=== PATIENT | male | born 1950 | race Caucasian/White ===

== ENCOUNTER 2016-10-02 21:31 | Emergency (ER) | payer OTHER ==
[~2016-10-02] VITALS: Ht 180.3 cm; Wt 81.6 kg
[2016-10-02 21:31] VITALS: BP_SYST 143
[2016-10-02 22:09] LABS: BASOPHILS # (AUTO) 0.1 K/uL (0.0-0.2); BASOPHILS % (AUTO) 0.8 % (0.0-2.0); EOSINOPHILS # (AUTO) 0.2 K/uL (0.0-0.4); EOSINOPHILS % (AUTO) 2.5 % (0.0-4.0); HEMATOCRIT 28.2 % (36-54); HEMOGLOBIN 9.1 g/dL (14.0-18.0); LYMPHOCYTES # (AUTO) 1.2 K/uL (1.0-5.5); LYMPHOCYTES % (AUTO) 15.8 % (20.5-51.5); MEAN CORPUSCULAR HEMOGLOBIN 26 pg (27-31); MEAN CORPUSCULAR HGB CONC 32 % (32-36); MEAN CORPUSCULAR VOLUME 80 fL (79.0-98.0); MONOCYTES # (AUTO) 0.6 K/uL (0.0-1.0); MONOCYTES % (AUTO) 7.3 % (1.7-9.3); NEUTROPHILS # (AUTO) 5.8 K/uL (1.8-7.7); NEUTROPHILS % (AUTO) 73.6 % (40.0-70.0); PLATELET COUNT (AUTO) 421 K/uL (130-430); RED BLOOD CELL COUNT(AUTO) 3.52 MIL/uL (4.2-6.2); RED CELL DISTRIBUTION WIDTH 18.1 % (9.0-15.0); WHITE BLOOD COUNT (AUTO) 7.9 K/uL (4.8-10.8)
[2016-10-02 22:23] LABS: CREATININE 1.42 mg/dL (0.55-1.30); POTASSIUM 4.2 mmol/L (3.5-5.1)
[2016-10-02 22:28] LABS: ALBUMIN 3.4 g/dL (3.4-4.8); TOTAL BILIRUBIN 0.2 mg/dL (0.0-1.0); TOTAL PROTEIN, SERUM 7.7 g/dL (6.4-8.3)
[2016-10-03 00:40] LABS: BILIRUBIN,URINE NEGATIVE (NEGATIVE); BLOOD, URINE NEGATIVE (NEGATIVE); CLARITY/URINE CLEAR (CLEAR); COLOR,URINE YELLOW (YELLOW); GLUCOSE,URINE NEGATIVE (NEGATIVE); KETONES,URINE NEGATIVE (NEGATIVE); LEUKOCYTE ESTERASE ,URINE NEGATIVE (NEGATIVE); NITRITE, URINE NEGATIVE (NEGATIVE); PH,URINE 5.5 (5.0-8.0); PROTEIN URINE NEGATIVE (NEGATIVE); UROBILINOGEN,URINE 0.2 (0.2-1.0)
[2016-10-03] MEDS ORDERED: PARO40TA80 PO (01:03)
[2016-10-03] MEDS ORDERED: FOLI-43 PO (01:03)
[2016-10-03] MEDS ORDERED: ASCO500T20 PO (01:03)
[2016-10-03] MEDS ORDERED: SULF1TAB48 PO (01:03)
[2016-10-03] MEDS ORDERED: TAMS0.4C96 PO (01:03)
[2016-10-03] MEDS ORDERED: FERR-57 PO (01:03)
[2016-10-03] MEDS ORDERED: ALLO100T PO (01:03)
[2016-10-03] MEDS ORDERED: SIME80TA PO (01:03)
[2016-10-03] MEDS ORDERED: THIA100T13 PO (01:03)
[2016-10-03] MEDS ORDERED: SENN-153 PO (01:03)
[2016-10-03] MEDS ORDERED: DOCU250C PO (01:03)
[2016-10-03] MEDS ORDERED: BUDE0.5A INH (01:03)
[2016-10-03 01:08] LABS: BARBITURATE, URINE NEGATIVE (NEG <=200); BENZODIAZEPINE, URINE POSITIVE (NEG <=150); CANNABINOID, URINE NEGATIVE (NEG <=50); COCAINE, URINE NEGATIVE (NEG <=150); METHAMPHETAMINES SCREEN,URINE NEGATIVE (NEG <=500); OPIATE, URINE POSITIVE (NEG <=100); PHENCYCLIDINE SCREEN,URINE NEGATIVE (NEG <=25); UR TRICYCLIC ANTIDEPRESSANTS NEGATIVE (NEG <=300); URINE AMPHETAMINE NEGATIVE (NEG <=500); URINE METHADONE NEGATIVE (NEG <=200); URINE OXYCODONE SCREEN NEGATIVE (NEG <=100); URINE PROPOXYPHENE SCREEN NEGATIVE (NEG <=300)
[2016-10-03 02:06] VITALS: BP_SYST 147
== END 2016-10-03 02:06 | disposition home or self-care (01) ==
LOC: SED 21:31
DX: R41.82 Altered mental status, unspecified (principal); M25.562 Pain in left knee; F03.90 Unspecified dementia, unspecified severity, without behavioral disturbance, psychotic disturbance, mood disturbance, and anxiety; Z79.899 Other long term (current) drug therapy; Z88.1 Allergy status to other antibiotic agents; Z88.8 Allergy status to other drugs, medicaments and biological substances
CPT/HCPCS: 36415; 70450; 73564; 80053; 80307; 81003; 85025; 93005; 99285; G0482

== ENCOUNTER 2016-10-06 00:22 | Inpatient (IN) | payer OTHER ==
[2016-10-06] VITALS (10 sets, daily range): BP systolic 118–150; BP diastolic 65–83; PULSE 64–85; RESP 16–18; TEMP 97.6–100.4; O2SAT 95–100
[~2016-10-06] VITALS: Ht 177.8 cm; Wt 76.3 kg
[~2016-10-06 00:22] MED LIST: ALLO100T PO; ASCO500T20 PO; BUDE0.5A INH; DOCU250C PO; FERR-57 PO; FOLI-43 PO; PARO40TA80 PO; SENN-153 PO; SIME80TA PO; SULF1TAB48 PO; TAMS0.4C96 PO; THIA100T13 PO
--- NOTE | 2016-10-06 00:27 | NUR ---
Placed in room 08 . Placed on cardiac monitor technician, blood pressure machine and pulse oximeter. To gown for exam. Side rails up. Report given to IGNACIO Ramon.
--- NOTE | 2016-10-06 00:30 | NUR ---
Patient brought to ER by [facility] from [facility] for post fall evaluation. Per EMT patient was found by staff on the floor. Denies pain. Small <1cm abrasion to head non bleeding, dry. Chana-umbilical SQ bruising, patient states "its from the insulin shots i get" no signs of infection. Dry flaky skin appropriate to age and ethnicity. Alert to person & purpose, unlabored breathing, no obvious signs of trauma, no signs of acute distress. Addendum: 10/06/16 at 0221 by [facility] *lovenox shots* not insulin
--- NOTE | 2016-10-06 00:32 | NUR ---
ER MD Carr at bedside for evaluation
--- NOTE | 2016-10-06 00:50 | NUR ---
Patient off the unit for CT scan via gurney
--- NOTE | 2016-10-06 01:16 | NUR ---
Patient back from CT scan via [facility]
--- NOTE | 2016-10-06 01:30 | NUR ---
#14 FR In and Out catheter with use of sterile technique. Immediate return of 30 ml yellow urine noted. Urine sample collected and sent to lab. Pt tolerated procedure well. Patient unable to toilet self.
--- NOTE | 2016-10-06 01:39 | NUR ---
# 18 gauge angiocath placed to R forearm. Use of asceptic technique. Opsite placed over site. Blood return noted. Blood for lab drawn from site. Flushed with 10 cc of normal saline. No evidence of infiltration noted. Patient tolerated well.
[2016-10-06 01:43] LABS: BILIRUBIN,URINE NEGATIVE (NEGATIVE); BLOOD, URINE NEGATIVE (NEGATIVE); CLARITY/URINE CLEAR (CLEAR); COLOR,URINE YELLOW (YELLOW); GLUCOSE,URINE NEGATIVE (NEGATIVE); KETONES,URINE TRACE (NEGATIVE); LEUKOCYTE ESTERASE ,URINE NEGATIVE (NEGATIVE); NITRITE, URINE NEGATIVE (NEGATIVE); PH,URINE 5.5 (5.0-8.0); PROTEIN URINE NEGATIVE (NEGATIVE); UROBILINOGEN,URINE 0.2 (0.2-1.0)
[2016-10-06] MEDS ORDERED: HYDR-1189 PO (01:44)
[2016-10-06] MEDS ORDERED: MAGN400O4 PO (01:44)
[2016-10-06] MEDS ORDERED: ACET-73 PO ×2 (01:44)
[2016-10-06] MEDS ORDERED: MAGN100T6 PO (01:44)
[2016-10-06] MEDS ORDERED: CETI5TAB31 PO (01:44)
[2016-10-06] MEDS ORDERED: MULT-1189 PO (01:44)
[2016-10-06] MEDS ORDERED: ACET325T53 PO (01:44)
[2016-10-06] MEDS ORDERED: LORA10TA7 PO (01:44)
--- NOTE | 2016-10-06 01:44 | NUR ---
Medication reconciliation completed with information provided by patient's facility. Any prior medication reconciliation on file was reviewed and corrected.
[2016-10-06 01:54] LABS: BASOPHILS # (AUTO) 0.1 K/uL (0.0-0.2); BASOPHILS % (AUTO) 0.8 % (0.0-2.0); EOSINOPHILS # (AUTO) 0.2 K/uL (0.0-0.4); EOSINOPHILS % (AUTO) 2.5 % (0.0-4.0); HEMATOCRIT 26.5 % (36-54); HEMOGLOBIN 8.4 g/dL (14.0-18.0); LYMPHOCYTES # (AUTO) 1.7 K/uL (1.0-5.5); LYMPHOCYTES % (AUTO) 23.1 % (20.5-51.5); MEAN CORPUSCULAR HEMOGLOBIN 25 pg (27-31); MEAN CORPUSCULAR HGB CONC 32 % (32-36); MEAN CORPUSCULAR VOLUME 79 fL (79.0-98.0); MONOCYTES # (AUTO) 0.8 K/uL (0.0-1.0); MONOCYTES % (AUTO) 10.5 % (1.7-9.3); NEUTROPHILS # (AUTO) 4.4 K/uL (1.8-7.7); NEUTROPHILS % (AUTO) 63.1 % (40.0-70.0); PLATELET COUNT (AUTO) 360 K/uL (130-430); RED BLOOD CELL COUNT(AUTO) 3.34 MIL/uL (4.2-6.2); RED CELL DISTRIBUTION WIDTH 18.3 % (9.0-15.0); WHITE BLOOD COUNT (AUTO) 7.2 K/uL (4.8-10.8)
[2016-10-06 01:59] LABS: BARBITURATE, URINE NEGATIVE (NEG <=200); BENZODIAZEPINE, URINE NEGATIVE (NEG <=150); CANNABINOID, URINE NEGATIVE (NEG <=50); COCAINE, URINE NEGATIVE (NEG <=150); METHAMPHETAMINES SCREEN,URINE NEGATIVE (NEG <=500); OPIATE, URINE NEGATIVE (NEG <=100); PHENCYCLIDINE SCREEN,URINE NEGATIVE (NEG <=25); UR TRICYCLIC ANTIDEPRESSANTS NEGATIVE (NEG <=300); URINE AMPHETAMINE NEGATIVE (NEG <=500); URINE METHADONE NEGATIVE (NEG <=200); URINE OXYCODONE SCREEN NEGATIVE (NEG <=100); URINE PROPOXYPHENE SCREEN NEGATIVE (NEG <=300)
[2016-10-06 02:04] LABS: CREATININE 1.41 mg/dL (0.55-1.30); POTASSIUM 4.3 mmol/L (3.5-5.1)
[2016-10-06 02:09] LABS: ALBUMIN 3.5 g/dL (3.4-4.8); TOTAL BILIRUBIN 0.4 mg/dL (0.0-1.0); TOTAL PROTEIN, SERUM 7.4 g/dL (6.4-8.3)
--- NOTE | 2016-10-06 02:10 | NUR ---
Patient does not meet SEPSIS protocol.
--- NOTE | 2016-10-06 02:25 | NUR ---
Patient will be admitted to care of DR APONTE. Admitted to TELE IN unit. Will go to room 135. Belongings list completed. Summary report printed. Report will be given at bedside.
[2016-10-06] MEDS ORDERED: SIMETHICONE 80 MG TAB.CHEW PO SCH (02:30)
[2016-10-06] MEDS ORDERED: HYDROcodone/ACETAMIN 5-325 MG TAB (NORCO/ VICODIN) PO PRN (02:30)
[2016-10-06] MEDS ORDERED: MILK OF MAGNESIA 30 ML UDC PO PRN (02:30)
[2016-10-06] MEDS ORDERED: CETIRIZINE HCL 5 MG PO SCH (02:30)
[2016-10-06] MEDS ORDERED: MAGNESIUM CITRATE 300 MG PO SCH (02:30)
[2016-10-06] MEDS ORDERED: ACETAMINOPHEN 500 MG TABLET PO SCH ×2 (02:30)
[2016-10-06] MEDS ORDERED: ACETAMINOPHEN 325 MG TABLET PO PRN ×2 (02:30→09:30)
--- NOTE | 2016-10-06 02:32 | NUR ---
Transfer to [facility] via ACLS protocol. Licensed nurse present. IV present no signs or symptoms of infiltration.
--- NOTE | 2016-10-06 02:42 | NUR ---
Admission Note Received patient from ER with diagnosis of SYNCOPE. Initial Plan of Care discussed-patient verbalized understanding. Family at bedside. Oriented to room, call light, pain management and safety.
[2016-10-06] MEDS: NACL 0.9% 1,000 ML IV SCH ×2 (03:20→16:55)
--- NOTE | 2016-10-06 04:50 | NUR ---
NOTES PATIENT IS CONFUSED. KEEPS PULLING OFF EKG PADS. REMINDED PATIENT NOT TO GET OUT OF BED. SHOWED HIM NURSE CALL BUTTON, INFORMED HIM TO CALL NURSE FOR ALL NEEDS. PATIENT ORIENTED TO NAME ONLY @ THIS TIME.
--- NOTE | 2016-10-06 06:59 | NUR ---
CLOSING NOTES PATIENT IS CONFUSED.NEEDS TO BE REMINDED TO STAY IN BED. PERIODS OF RESTLESSNESS. NONCOMPLIANT. PULLS OFF EKG PADS. PULLING ON IV TUBING. HAS IV 0.9NS INFUSING @ 70ML/HR VIA RT.HAND 20G IV SITE IS CLEAR. HAS NOT VOIDED YET. ABDOMEN IS SOFT. OFFERED URINAL. INFORMED PATIENT TO STAY IN BED AND CALL NURSE FOR ALL NEEDS. CALL LIGHT WITHIN EASY ACCESS.
[2016-10-06] MEDS: BUDESONIDE 0.5 MG/2 ML AMPUL.NEB INH SCH ×2 (07:00→20:07)
--- NOTE | 2016-10-06 08:04 | NUR ---
OPENING NOTE: RECEIVED REPORT FROM Nathanael KAUR. PT AAOX2. REORIENTED PT TO PLACE AND DATE. PT RESTING COMFORTABLY IN BED WITH HOB ELEVATED. NO ACUTE SIGNS OF DISTRESS, NO SOB. RESPIRATIONS EVEN AND UNLABORED. PT ON ROOM AIR SATURATING AT 98% O2. SKIN WARM DRY AND PINK. IV INTACT AND IVF INFUSING WELL. PT REFUSES TELE BOX TO BE IN PLACE. PT IS NON COMPLIANT AND COMBATIVE. PT REFUSED BLOOD PRESSURE TO BE TAKEN, COMBATIVE WHEN ATTEMPTED. SAFETY PRECAUTIONS IN PLACE WITH BED AT LOWEST POSITION, CALL LIGHT WITHIN REACH, BED ALARM ON, AND SIDE RAILS X3. RE-ENFORCED EDUCATION IN REGARDS TO CALLING PRIOR TO GETTING UP. PT HAS URINAL AT BEDSIDE, RE-ENFORCED EDUCATION IN REGARDS TO USING URINAL WHEN NEEDING TO VOID. CONTINUE TO MONITOR.
[2016-10-06] MEDS: SENNOSIDES 8.6 MG TABLET PO SCH ×3 (08:47→22:28)
[2016-10-06] MEDS: PARoxetine HCL 20 MG TABLET PO SCH (08:47)
[2016-10-06] MEDS: ALLOPURINOL 100 MG TABLET (ZYLOPRIM) PO SCH (08:48)
[2016-10-06] MEDS: TAMSULOSIN HCL 0.4 MG CAP PO SCH (08:48)
[2016-10-06] MEDS ORDERED: THIAMINE HCL 100 MG TABLET PO SCH (09:00)
[2016-10-06] MEDS ORDERED: MULTIVITS,CA,MINERALS/IRON/FA 1 TABLET PO SCH (09:00)
[2016-10-06] MEDS ORDERED: SULFAMETHOXAZOLE/TRIMETHOPR DS 1 TABLET PO SCH (09:00)
[2016-10-06] MEDS ORDERED: LORATADINE 10 MG TABLET PO SCH (09:00)
[2016-10-06] MEDS ORDERED: DOCUSATE SODIUM 250 MG CAPSULE PO SCH (09:00)
[2016-10-06] MEDS ORDERED: FOLIC ACID 1 MG TABLET PO SCH (09:00)
[2016-10-06] MEDS ORDERED: FERROUS SULFATE 325 MG TABLET.DR PO SCH (09:00)
[2016-10-06] MEDS ORDERED: ASCORBIC ACID 500 MG TABLET PO SCH (09:00)
--- NOTE | 2016-10-06 09:23 | NUR ---
Nutrition Update Kam Scale 15 noted. Pt admitted for: Syncope Diet: regular diet. BMI: 24.1 kg/m2 RD to follow per nutrition care standards.
[2016-10-06] MEDS ORDERED: DOCUSATE SODIUM 100 MG CAPSULE PO PRN (09:30)
[2016-10-06] MEDS ORDERED: POTASSIUM CHLORIDE 10 MEQ TAB.PRT.SR PO PRN (09:30)
[2016-10-06] MEDS ORDERED: ONDANSETRON HCL 4 MG/2 ML VIAL IVP PRN (09:30)
[2016-10-06] MEDS ORDERED: MAGNESIUM SULFATE 50 ML IV PRN (09:30)
[2016-10-06] MEDS ORDERED: ZOLPIDEM TARTRATE 5 MG TABLET PO PRN (09:30)
--- NOTE | 2016-10-06 10:06 | NUR ---
REASON FOR CONSULTATION:POSS VIDA DO -WAS CONSULT CALLED?Y PERSON WHO WAS NOTIFIED:DEEPIKA CONSULTING PHYSICIAN:DR. VALENTIN -DR TYLER COVERING TODAY [employer] CONSULTANT SPECIALTY:NEURO [employer] CONSULTANT PHONE NUMBER:[phone]
--- NOTE | 2016-10-06 10:33 | NUR ---
DR. TYLER AT BEDSIDE: Dr. TYLER AT BEDSIDE. DR. TYLER ASSESSED AT BEDSIDE. NEW ORDERS NOTED FOR MRI AND EEG.
--- NOTE | 2016-10-06 10:41 | NUR ---
ROUNDING: PT RESTING IN BED WITH HOB ELEVATED. AAOX2. REORIENTED PT. NO ACUTE SIGNS OF RESPIRATORY DISTRESS, NO SOB. RESPIRATIONS EVEN AND UNLABORED. SKIN WARM DRY AND PINK. IV INTACT WITH NO SIGNS OF REDNESS/SWELLING. IVF INFUSING WELL. SEIZURE PRECAUTIONS IMPLEMENTED WITH PADDED SIDE RAILS. COOLING MEASURES IMPLEMENTED WITH NO BLANKET AND ICE PACK. SAFETY MEASURES IMPLEMENTED
--- NOTE | 2016-10-06 12:05 | NUR ---
ROUNDING: RADIOLOGY AT BEDSIDE. PT RESTING WITH HOB ELEVATED, COMFORTABLY. NO ACUTE RESPIRATORY DISTRESS, NO SOB. SKIN COLOR PINK. IV INTACT, IVF INFUSING WELL. SEIZURE PRECAUTIONS. SAFETY PRECAUTIONS. CONTINUE TO MONITOR.
[2016-10-06] MEDS: LEVOFLOXACIN 500 MG/D5W 100 ML IV SCH (12:45)
--- NOTE | 2016-10-06 15:47 | NUR ---
PT REFUSING TELE BOX: PT IS REFUSING TELE BOX, PT IS COMBATIVE. PT ATTEMPTS TO HIT WHEN REPLACING TELE BOX. DR. RICHEY IS AWARE THAT PT REFUSES TELE BOX AT TIMES.
[2016-10-06] MEDS: LORazepam 2 MG/ML VIAL IVP PRN (16:36)
--- NOTE | 2016-10-06 16:36 | NUR ---
patient noted to be agitated, pulling lines, stripping clothing off, arguing with staff and threatening violence. 2mg ivp ativan given and patient placed back in to bed with aid of security
--- NOTE | 2016-10-06 16:58 | NUR ---
Seizure: Tremors noted to BUE and BLE. Pt is non-verbal and he is staring blankly ahead followed by eyes rolling back into head. Pt unable to follow commands. Seizure lasts 10 seconds. After seizure patient returns to baseline, he remains combative, nonsensical, and awake. Pt noted trying to reach for objects in the air. O2 sat 100% on room air. Security remains at bedside. Continue to monitor.
--- NOTE | 2016-10-06 17:13 | NUR ---
Dr. De La O Paged: Dr. De La O paged to make aware that pt is too combative for MRI and EEG at this time. Awaiting page back at this time.
--- NOTE | 2016-10-06 17:23 | NUR ---
Dr. De La O Page Back/ Page Dr. Diaz: Dr. De La O page back, he is aware that pt has been having seizures. He is also aware that MRI, and EEG cannot be done at this time due to patient being uncooperative. New orders noted for seizure medications. Dr. De La O states "ok try EEG tomorrow and we can reschedule MRI for another time". Pharmacy called, aware of new med orders. Dr. Diaz paged for orders for restraints and medication.
[2016-10-06] MEDS ORDERED: VALPROATE SODIUM 1,000 MG in NS 100 ML IV ONE (17:30)
--- NOTE | 2016-10-06 17:57 | NUR ---
NOTIFIED REGARDS TO RESTRAINTS: SPOKE TO , FRANCIA. SHE IS AWARE OF SOFT RESTRAINTS INITIATION. CYNTHIAI STATED "HE HAS HAD RESTRAINTS BEFORE. DO WHATEVER YOU CAN TO KEEP HIM AND THE STAFF SAFE". UPDATED ON PLAN OF CARE. NO FURTHER QUESTIONS.
--- NOTE | 2016-10-06 18:30 | NUR ---
Consultation Paged Reason for consultation: Agitation, Aggression and Confusion Was consult called: Yes Person who was notified; Kymberly Consulting Physician: Dr Munoz; Dr Jensen is on-call for Dr Munoz Grain Elevator Operator Specialty: Psych Grain Elevator Operator ; notified exchange that the number provided for Dr Munoz's exchange does not work Ordered By: Dr Diaz
--- NOTE | 2016-10-06 19:08 | NUR ---
CLOSING NOTE: PT IN BED WITH HOB ELEVATED. NO ACUTE SIGNS OF RESPIRATORY DISTRESS, NO SOB. SKIN WARM DRY AND COLOR NORMAL FOR ETHNICITY. IV INTACT AND IVF INFUSING WELL. SOFT RESTRAINTS IN PLACE WITH 2 FINGER WIDTH SPACE, PULSE PRESENT BILATERAL, BILATERAL UPPER EXTREMITIES COLOR NORMAL FOR ETHNICITY. PT DENIES PAIN AT THIS TIME. PT DENIES DISCOMFORT. SEIZURE PRECAUTIONS IMPLEMENTED WITH PADDED RAILS. SAFETY WITH BED LOWEST POSITION, CALL LIGHT WITHIN REACH, BED ALARM ON, AND SIDE RAILS X3. WILL ENDORSE PLAN OF CARE TO IGNACIO KAUR.
--- NOTE | 2016-10-06 19:50 | NUR ---
initial note pt. received in bed, no s/s of sob or distress. no facial grimacing for pain. vss. pt. does not want to open eyes or respond when being spoken to. bilateral soft wrist restraints noted. becomes agitated when restraints are removed. good circulation and pulses present bilaterally to both wrists. iv access to left forearm, no infiltration noted. iv fluids infusing well as ordered. unable to discuss plan of care with the pt. will do frequent rounding. pt. is close to the nurses station for close observation. pillows placed under the heels and on the side to offload pressure areas. side rails are padded for seizure precautions. safety and fall precautions in place. bed alarm is on.
--- NOTE | 2016-10-06 22:15 | NUR ---
rounds pt. in bed. resting with eyes closed. no signs of sob noted. removed restraints so pt could move hands freely, however the pt. became very agitated. good circulation and pulses are present to bilateral wrists/ upper extremities. attempted to give the pt. water, but he kept his mouth closed very tight. also refused to take his 2100 oral medication. pt kept eyes closed and started shaking hands when asked him if he would be able to take the medication. restrains are back in place. pt. covered with a warm blanket for comfort. will cont. to closely monitor. safety, fall and seizure precautions remain in place. call light in hand. bed alarm is on.
[2016-10-06] MEDS: HEPARIN SODIUM,PORCINE 5000 UNITS/ML VIAL SUBCUT SCH (22:30)
[2016-10-07] VITALS (7 sets, daily range): BP systolic 98–144; BP diastolic 60–78; PULSE 72–82; RESP 16–20; TEMP 98.5–99.6; O2SAT 93–100
--- NOTE | 2016-10-07 00:02 | NUR ---
rounds pt. resting in bed with eyes closed. chest rise and fall noted. no s/s of sob or distress noted. no facial grimacing for pain. good circulation present to bilateral upper extremities. iv fluids cont. to infuse well. will cont. to monitor the pt. closely for any changes. safety, fall and seizure precautions in place. call light in reach, bed alarm on.
--- NOTE | 2016-10-07 02:15 | NUR ---
rounds pt. provided with bed bath with assistance from commercial teller. restraints removed during this time. pt. being combative and uncooperative. attempting to hit. bilateral upper extremeties are warm to touch with good circulation and pulses present bilaterally. no signs of injury as a result of having restraints in place. pt. was offered fluids during this time to which he refused. pt. was left in a comfortable position, supported well with pillows to offload pressure areas. iv fluids cont. to infuse well. seizure precautions remain in place. call light is in reach and the bed alarm is on. bilateral soft wrist restraints reapplied prior to leaving the room. will cont. to closely monitor.
--- NOTE | 2016-10-07 04:15 | NUR ---
ROUNDS PT. SLEEPING AT THIS TIME. NO S/S OF SOB OR DISTRESS. NO FACIAL GRIMACING FOR PAIN. IV FLUIDS CONT. TO INFUSE WELL. WILL CONT. TO MONITOR FOR CHANGES. SAFETY, FALL AND SEIZURE PRECAUTIONS IN PLACE CALL LIGHT IN REACH, BED ALARM ON.
--- NOTE | 2016-10-07 06:37 | NUR ---
CLOSING NOTE PT. SLEEPING AT THIS TIME. NO S/S OF SOB OR DISTRESS. NO FACIAL GRIMACING FOR PAIN. IV FLUIDS CONT. TO INFUSE WELL. SAFETY AND FALL PRECAUTIONS WERE MAINTAINED. NO SEIZURE ACTIVITY NOTED THIS SHIFT WILL ENDORSE CARE TO AM NURSE. CALL LIGHT IN REACH. BED ALARM ON.
--- NOTE | 2016-10-07 07:41 | NUR ---
OPENING NOTE: PT RESTING IN BED WITH EYES CLOSED. NO ACUTE SIGNS OF RESPIRATORY DISTRESS, NO SOB. SKIN COLOR NORMAL FOR ETHNICITY. IV INTACT. IVF INFUSING WELL. EEG IN PROGRESS AT BEDSIDE. SEIZURE PRECAUTION IN PLACE. FALL PRECAUTION IN PLACE. CONTINUE TO MONITOR.
[2016-10-07 07:45] LABS: BASOPHILS % (AUTO) 0.9 % (0.0-2.0); EOSINOPHILS # (AUTO) 0.2 K/uL (0.0-0.4); HEMATOCRIT 24.6 % (36-54); HEMOGLOBIN 7.6 g/dL (14.0-18.0); LYMPHOCYTES # (AUTO) 1.1 K/uL (1.0-5.5); LYMPHOCYTES % (AUTO) 21.6 % (20.5-51.5); MEAN CORPUSCULAR HEMOGLOBIN 25 pg (27-31); MEAN CORPUSCULAR HGB CONC 31 % (32-36); MEAN CORPUSCULAR VOLUME 79 fL (79.0-98.0); MONOCYTES # (AUTO) 0.6 K/uL (0.0-1.0); MONOCYTES % (AUTO) 11.4 % (1.7-9.3); NEUTROPHILS # (AUTO) 3.4 K/uL (1.8-7.7); NEUTROPHILS % (AUTO) 63.1 % (40.0-70.0); PLATELET COUNT (AUTO) 322 K/uL (130-430); RED CELL DISTRIBUTION WIDTH 18.4 % (9.0-15.0); WHITE BLOOD COUNT (AUTO) 5.3 K/uL (4.8-10.8)
[2016-10-07 08:00] LABS: CALCIUM 8.6 mg/dL (8.4-11.0); CREATININE 1.14 mg/dL (0.55-1.30); POTASSIUM 3.9 mmol/L (3.5-5.1)
[2016-10-07 08:29] LABS: C-REACTIVE PROTEIN QUANT 4.5 mg/dL (0-0.5); PHOSPHORUS 3.5 mg/dL (2.7-4.5); THYROID STIMULATING HORMONE 1.83 uIu/mL (0.34-4.82)
[2016-10-07] MEDS ORDERED: VALPROIC ACID 250 MG CAPSULE (DEPAKENE) PO SCH (09:00)
--- NOTE | 2016-10-07 09:11 | NUR ---
CALLED ID CONSULT TO DR FANG, RE: INT. FEVER. SPOKE TO JOLIE
[2016-10-07] MEDS: LORazepam 2 MG/ML VIAL IVP PRN (09:26)
[2016-10-07] MEDS: SENNOSIDES 8.6 MG TABLET PO SCH ×3 (09:32→21:25)
[2016-10-07] MEDS: PARoxetine HCL 20 MG TABLET PO SCH (09:32)
[2016-10-07] MEDS: NACL 0.9% 1,000 ML IV SCH (09:32)
[2016-10-07] MEDS: ALLOPURINOL 100 MG TABLET (ZYLOPRIM) PO SCH (09:32)
[2016-10-07] MEDS: HEPARIN SODIUM,PORCINE 5000 UNITS/ML VIAL SUBCUT SCH ×2 (09:34→21:24)
[2016-10-07] MEDS: TAMSULOSIN HCL 0.4 MG CAP PO SCH (09:35)
--- NOTE | 2016-10-07 09:47 | NUR ---
Pt Agitation: Pt is agitated, pulls at restraints and attempts to get out of bed. He is wiggling out of his restraints and attempting to hit. Unable to redirect patient. He remains confused, nonsensical, and combative. Ativan given for agitation. US of carotid in progress at this time. Call light in reach. Continue to monitor.
--- NOTE | 2016-10-07 10:35 | NUR ---
DR. LIPSCOMB HERE: DR. LIPSCOMB AT BEDSIDE.
[2016-10-07] MEDS: BUDESONIDE 0.5 MG/2 ML AMPUL.NEB INH SCH ×2 (11:20→19:49)
[2016-10-07] MEDS: LEVOFLOXACIN 500 MG/D5W 100 ML IV SCH (11:23)
--- NOTE | 2016-10-07 12:00 | NUR ---
ROUNDING: PT RESTING IN BED WITH EYES CLOSED, HOB ELEVATED. NO ACUTE SIGNS OF RESPIRATORY DISTRESS, NO SOB. SKIN WARM DRY AND COLOR NORMAL FOR ETHNICITY. IV INTACT, NO SIGNS OF REDNESS/SWELLING. IVF INFUSING WELL. SOFT RESTRAINTS INTACT, TWO FINGER WIDTH, PULSES PRESENT BILATERAL UPPER EXTREMITIES. CONTINUE TO MONITOR.
--- NOTE | 2016-10-07 12:24 | NUR ---
ATTENDING DR FADI HALL CALLED RE: CRITICAL LABS. LEFT A MESSAGE
--- NOTE | 2016-10-07 14:00 | NUR ---
ROUNDING: PT RESTING WITH EYES CLOSED, HOB ELEVATED. NO ACUTE RESPIRATORY DISTRESS. SKIN COLOR NORMAL FOR ETHNICITY. IV INTACT. SOFT WRIST RESTRAINTS INTACT. SAFETY PRECAUTION IN PLACE. SEIZURE PRECAUTION IN PLACE. CONTINUE TO MONITOR.
[2016-10-07] MEDS: VALPROATE SODIUM IV SCH ×2 (14:27→21:23)
[2016-10-07] MEDS: D5W IV SCH ×2 (14:27→21:23)
--- NOTE | 2016-10-07 16:04 | NUR ---
DR. BIRD HERE: INFECTIOUS DISEASE MD, DR. BIRD HERE TO SEE PATIENT. DR. BIRD AWARE OF PT HISTORY AND WOUNDS. SAID "I WILL GO SEE THE PATIENT AND PUT NEW ORDERS".
[2016-10-07] MEDS: CLINDAMYCIN 600 MG in D5W 50 ML IV SCH (17:37)
--- NOTE | 2016-10-07 17:41 | NUR ---
ROUNDING: PT RESTING COMFORTABLY IN BED, HOB ELEVATED. NO ACUTE RESPIRATORY DISTRESS NOTED, NO SOB. SKIN WARM DRY AND COLOR NORMAL FOR ETHNICITY. IV INTACT. IVF/MEDS INFUSING WELL. RESTRAINTS IN PLACE WITH 2 FINGER WIDTH SPACE, BILATERAL UPPER EXTREMITY PULSES PRESENT. SEIZURE PRECAUTIONS WITH PADDED RAILS. BED AT LOWEST POSITION. SIDE RAILS X3.
--- NOTE | 2016-10-07 19:10 | NUR ---
CLOSING NOTE: PT RESTING WITH HOB ELEVATED. NO ACUTE RESPIRATORY DISTRESS, NO SOB. RESPIRATIONS EVEN AND UNLABORED. SKIN WARM DRY AND PINK. NO SEIZURE ACTIVITY NOTED THIS SHIFT. SEIZURE PADS IN PLACE. TREMORS PERSIST TO BILATERAL UPPER EXTREMITIES. DRESSING INTACT TO LEG FOOT. IV INTACT AND IVF INFUSING WELL. PT ASSISTED FEEDING WITH LUNCH AND DINNER AND PT REFUSED. SOFT BILATERAL WRIST RESTRAINTS IN PLACE WITH TWO FINGER WIDTH, PULSE PRESENT AND CAP REFILLS. SAFETY MEASURES IN PLACE. WILL ENDORSE PLAN OF CARE TO IGNACIO KAUR.
--- NOTE | 2016-10-07 19:59 | NUR ---
initial note pt. received in bed, awake, verbal, but not able to make much sense of what the pt. is saying. no s/s of sob or distress. no facial grimacing for pain. vss. bilateral soft wrist restraints noted. upper extremities warm to touch, good circulation and pulses present bilaterally . iv access to left forearm, no infiltration noted. iv fluids infusing well as ordered. wound to left foot is covered with a clean and dry dressing. no drainage noted. unable to discuss plan of care with the pt. will do frequent rounding. pt. is close to the nurses station for close observation. pillows placed under the heels and on the side to offload pressure areas. side rails are padded for seizure precautions. safety and fall precautions in place. bed alarm is on.
[2016-10-07] MEDS ORDERED: VALPROATE SODIUM 100 MG/ML VIAL (DEPACON) IV ONE (21:16)
--- NOTE | 2016-10-07 21:33 | NUR ---
PO MEDS ATTEMPTED TO ADMINISTER 2100 PO MEDICATION. PT. NODDED HEAD THAT HE COULD SWALLOW HOWEVER WHEN ASSISTED PT IN PUTTING PILL IN HIS MOUTH HE CLOSED EYES AND FELL ASLEEP HOLDING PILL IN HIS MOUTH. ATTEMPTED TO WAKE PT. BUT VERY LETHARGIC. WAS ABLE TO GET THE PILL OUT OF THE PT. MOUTH HE WAS JUST HOLDING IT BETWEEN HIS LIP AND TEETH. FOR SAFETY REASONS THE PILL WILL BE HELD. ATTEMPTED TO GIVE PT. WATER WELL, BUT IT APPEARS HE IS HAVING DIFFICULTY USING THE STRAW WELL. WILL ENDORSE. CHARGE NURSE MADE AWARE OF THE SITUATION.
--- NOTE | 2016-10-07 22:15 | NUR ---
ROUNDS PT. RESTING IN BED WITH EYES CLOSED. CHEST RISE AND FALL NOTED. RESTRAINTS REMOVED. GOOD CIRCULATION NOTED TO BILATERAL UPPER EXTREMITIES, WARM TO TOUCH WITH PULSES PRESENT. NO S/S OF SOB OR DISTRESS NOTED. NO FACIAL GRIMACING INDICATING PAIN. WILL CONT. TO MONITOR FOR CHANGES. SAFETY, FALL AND SEIZURE PRECAUTIONS IN PLACE. CALL LIGHT IN REACH.
[2016-10-08] VITALS (7 sets, daily range): BP systolic 120–140; BP diastolic 60–88; PULSE 68–80; RESP 16–18; TEMP 97.6–98.8; O2SAT 93–100
--- NOTE | 2016-10-08 | NUR ---
rounds pt. provided with new linen and hygiene care. pt. incontinent of urine and unable to toilet self. repositioned in bed and well supported with pillows to offload pressure areas. restraints removed. pt restless during this time. bilateral upper extremities are warm to touch, good circulation present. dressing to left heel remains CDI with no drainage noted. iv fluids continue to infuse well as ordered. restraints reapplied prior to leaving room. safety, fall and seizure precautions in place. call light in reach.
[2016-10-08] MEDS: CLINDAMYCIN 600 MG in D5W 50 ML IV SCH ×4 (00:30→17:02)
[2016-10-08] MEDS: NACL 0.9% 1,000 ML IV SCH ×3 (03:58→21:47)
--- NOTE | 2016-10-08 04:39 | NUR ---
ROUNDS PT. RESTING IN BED WITH EYES CLOSED. CHEST RISE AND FALL NOTED. RESTRAINTS REMOVED. GOOD CIRCULATION NOTED TO BILATERAL UPPER EXTREMITIES, WARM TO TOUCH WITH PULSES PRESENT. NO S/S OF SOB OR DISTRESS NOTED. NO FACIAL GRIMACING INDICATING PAIN. IV FLUIDS CONTINUE TO INFUSE WELL ORDERED. WILL CONT. TO MONITOR FOR CHANGES. SAFETY, FALL AND SEIZURE PRECAUTIONS IN PLACE. CALL LIGHT IN REACH.
[2016-10-08] MEDS: D5W IV SCH ×3 (06:16→21:48)
[2016-10-08] MEDS: VALPROATE SODIUM IV SCH ×3 (06:16→21:48)
[2016-10-08 06:46] LABS: BASOPHILS % (AUTO) 0.9 % (0.0-2.0); EOSINOPHILS # (AUTO) 0.1 K/uL (0.0-0.4); EOSINOPHILS % (AUTO) 2.1 % (0.0-4.0); HEMATOCRIT 24.3 % (36-54); HEMOGLOBIN 7.7 g/dL (14.0-18.0); LYMPHOCYTES % (AUTO) 25.9 % (20.5-51.5); MEAN CORPUSCULAR HEMOGLOBIN 25 pg (27-31); MEAN CORPUSCULAR HGB CONC 32 % (32-36); MEAN CORPUSCULAR VOLUME 79 fL (79.0-98.0); MONOCYTES # (AUTO) 0.5 K/uL (0.0-1.0); MONOCYTES % (AUTO) 13.9 % (1.7-9.3); NEUTROPHILS # (AUTO) 2.2 K/uL (1.8-7.7); NEUTROPHILS % (AUTO) 57.2 % (40.0-70.0); PLATELET COUNT (AUTO) 289 K/uL (130-430); RED BLOOD CELL COUNT(AUTO) 3.07 MIL/uL (4.2-6.2); RED CELL DISTRIBUTION WIDTH 18.5 % (9.0-15.0); WHITE BLOOD COUNT (AUTO) 3.8 K/uL (4.8-10.8)
[2016-10-08 06:55] LABS: CALCIUM 8.4 mg/dL (8.4-11.0); CREATININE 1.13 mg/dL (0.55-1.30); POTASSIUM 3.8 mmol/L (3.5-5.1)
[2016-10-08] MEDS: BUDESONIDE 0.5 MG/2 ML AMPUL.NEB INH SCH ×2 (07:26→19:52)
--- NOTE | 2016-10-08 07:41 | NUR ---
INITIAL NOTE PT LAYING IN BED, RECEIVING BREATHING TREATMENT, A/O X2, NOTED SOFT BILATERAL WRIST RESTRAINTS, RADIAL PULSES PALPABLE, PT ABLE TO WIGGLE FINGERS, NO REDNESS NOTED, SKIN INTACT, IV TO LFA INTACT AND INFUSING FLUIDS AT ORDERED RATE, SEIZURE PRECAUTIONS AND SAFETY MEASURES IN PLACE, CALL LIGHT WITHIN REACH, BED IN LOW POSITION AND LOCKED,WILL FOLLOW UP
[2016-10-08 08:06] LABS: THYROID PEROXIDASE (TPO) AB 8 IU/mL (0-34)
[2016-10-08] MEDS: ALLOPURINOL 100 MG TABLET (ZYLOPRIM) PO SCH (08:45)
[2016-10-08] MEDS: SENNOSIDES 8.6 MG TABLET PO SCH ×2 (08:45→21:48)
[2016-10-08] MEDS: PARoxetine HCL 20 MG TABLET PO SCH ×2 (08:45→21:48)
[2016-10-08] MEDS: TAMSULOSIN HCL 0.4 MG CAP PO SCH (08:45)
[2016-10-08] MEDS: HEPARIN SODIUM,PORCINE 5000 UNITS/ML VIAL SUBCUT SCH ×2 (08:46→21:50)
--- NOTE | 2016-10-08 09:10 | NUR ---
DR WALDROP AT BEDSIDE, PATIENT ASSESSED, WILL FOLLOW UP
--- NOTE | 2016-10-08 09:40 | NUR ---
dr james making rounds, new orders received, will carry out. and continue to monitor patient
[2016-10-08] MEDS ORDERED: NA PHOS,M-B/NA PHOS,DI-BA 118 ML (FLEET ENEMA) RC ONE (10:00)
[2016-10-08] MEDS: LEVOFLOXACIN 500 MG/D5W 100 ML IV SCH (10:12)
--- NOTE | 2016-10-08 10:30 | NUR ---
FLEET ENEMA ADMINISTERED AND STOOL SAMPLE SENT TO LAB, PT TOLERATED WELL, PT RELEASED FROM RESTRAINTS FOR 20 MINUTES WHILE STAFF WAS IN ROOM AND CHANGED HIM, BILATERAL RADIAL PULSES PALPABLE, SKIN INTACT, PT REPOSITIONED WITH PILLOW SUPPORT, TV TURNED ON, SAFETY MEASURES IN PLACE, BED IN LOW POSITION AND BED ALARM ON, WILL FOLLOW UP
--- NOTE | 2016-10-08 12:30 | NUR ---
RESTRAINTS RELEASED FOR 15 MINUTES, PT REPOSITIONED TO SITTING POSITION FOR LUNCH, PT CONFUSED, REFUSES TO EAT, STATES I AM TRICKING HIM TO EAT SOMETHING HE DOES NOT WANT, WILL ATTEMPT TO HAVE HIM EAT AT A LATER TIME, RESTRAINTS RETURNED, SKIN INTACT, PULSES PALPABLE, SAFETY MEASURES IN PLACE, CALL LIGHT WITHIN REACH, WILL CONTINUE TO MONITOR
--- NOTE | 2016-10-08 14:05 | NUR ---
RESTRAINTS RELEASED FOR 15 MINUTES AND PT REPOSITIONED WITH PILLOW SUPPORT TO OPPOSITE SIDE, PT IS CONFUSED, STATES HE IS A DIFFERENT AGE, NOT ORIENTED TO PLACE, PT IS CONFUSED BUT NOT COMBATIVE AT THE MOMENT. RESTLESS. PT HAS ACTIVE ROM OF WRIST, PULSES PALPABLE, SKIN INTACT, NO REDNESS OR IRRITATION NOTED, SAFETY MEASURES IN PLACE, BED IN LOW POSITION AND LOCKED, CALL LIGHT WITHIN REACH, WILL FOLLOW UP
--- NOTE | 2016-10-08 14:31 | NUR ---
DR BIRD MAKING ROUNDS, NO NEW ORDER RECEIVED, STATED TO CONTINUE WITH ANTIBIOTIC THERAPY AND MONITOR.
--- NOTE | 2016-10-08 16:30 | NUR ---
wound care wound to left heal cleansed with normal saline, wound bed noted to be be yellow 60% pink 40%, moderate drainage with odor noted, hydrogel applied to wound bed with zguard and sure prep applied to periwound, covered with foam dressing and secured in place with cling wrap. pt tolerated well, safety measures in place, restraints returned, call light within reach, bed in low position and locked. will continue to monitor.
--- NOTE | 2016-10-08 18:40 | NUR ---
CLOSING NOTE PT RESTING, EASY TO AROUSE, RESTRAINTS IN PLACE, SKIN INTACT, PULSES PALPABLE, PT ABLE TO FREELY MOVE WRISTS, IV FLUIDS INFUSING TO LFA AT ORDERED RATE, NO S/S OF INFILTRATION, DRESSING TO LEFT HEAL CLEAN DRY AND INTACT, ALL NEEDS ATTENDED TO THROUGH OUT SHIFT, SAFETY MEASURES MAINTAINED, WILL GIVE REPORT TO FOLLOWING SHIFT.
--- NOTE | 2016-10-08 20:04 | NUR ---
initial note pt. received in bed, with eyes closed. opens eyes to light stimuli. no s/s of sob or distress. no facial grimacing for pain. vss. bilateral soft wrist restraints noted. good circulation and pulses present bilaterally to both wrists. upper extremities warm to touch. iv access to left forearm, no infiltration noted. iv fluids infusing well as ordered. left heel wound is covered with clean, dry and intact dressing. unable to discuss plan of care with the pt. will do frequent rounding. pt. is close to the nurses station for close observation. pillows placed under the heels and on the side to offload pressure areas. side rails are padded for seizure precautions. safety and fall precautions in place. bed alarm is on.
--- NOTE | 2016-10-08 22:00 | NUR ---
rounds pt. in bed with eyes open. verbal, but does not make much sense. not able to make needs known. pm medications were crushed and mixed with vanilla pudding. pt. tolerated well. followed with water. no signs of aspiration noted. restraints were removed during this time. pt. remained calm and quiet. upper extremities are warm to touch bilaterally. radial pulses are present and good circulation is noted. restraints reapplied prior to leaving room. iv fluids continue to infuse well. will cont. to monitor for any changes. safety, fall and seizure precautions in place. call light in reach.
--- NOTE | 2016-10-09 00:06 | NUR ---
rounds pt. resting in bed at this time. mildly restless when restraints removed. good circulation present to bilateral upper extremities. no s/s of sob noted. no facial grimacing indicating pain. pt. was offered water, did not wish to have any at this time. iv fluids cont. to infuse well. will cont. to monitor for changes. safety, fall and seizure precautions in place. call light in reach. bed alarm on.
[2016-10-09] MEDS: CLINDAMYCIN 600 MG in D5W 50 ML IV SCH ×5 (00:24→23:26)
--- NOTE | 2016-10-09 02:05 | NUR ---
ROUNDS LATE ENTRY DUE TO PT. CARE PT. RESTING IN BED WITH EYES CLOSED. NO SIGNS OF DISTRESS AT THIS TIME. GOOD CIRCULATION PRESENT TO BILATERAL UPPER EXTREMITIES. BREATHING IS EVEN AND UNLABORED. IV FLUIDS INFUSING WELL. WILL CONT. TO MONITOR FOR CHANGES. SAFETY AND FALL PRECAUTIONS IN PLACE. CALL LIGHT IN REACH.
--- NOTE | 2016-10-09 04:14 | NUR ---
ROUNDS PT. RESTING IN BED WITH EYES CLOSED. CHEST RISE AND FALL NOTED. NO S/S OF SOB OR DISTRESS. NO FACIAL GRIMACING INDICATING PAIN. RESTRAINTS REMOVED, GOOD CIRCULATION PRESENT TO BILATERAL UPPER EXTREMITIES. WARM TO TOUCH. IV FLUIDS INFUSING WELL. WILL CONT. TO MONITOR. SAFETY AND FALL PRECAUTIONS IN PLACE. CALL LIGHT IN REACH.
[2016-10-09 04:27] VITALS: BP 127/69; PULSE 75; RESP 19; TEMP 98.8; O2SAT 98
[2016-10-09] MEDS: D5W IV SCH ×3 (05:47→22:06)
[2016-10-09] MEDS: VALPROATE SODIUM IV SCH ×3 (05:47→22:06)
--- NOTE | 2016-10-09 06:33 | NUR ---
CLOSING NOTE PT. SLEEPING AT THIS TIME. NO S/S OF SOB OR DISTRESS. NO FACIAL GRIMACING FOR PAIN. IV FLUIDS CONT. TO INFUSE WELL. PT WAS TURNED, REPOSITIONED AND PROVIDED WITH PERINEAL CARE FOR INCONTINENCE. PILLOWS ARE PLACED UNDER SIDE AND HEELS TO OFFLOAD PRESSURE AREAS. BILATERAL SOFT WRIST RESTRAINTS REMAIN IN PLACE WITH GOOD CIRCULATION NOTED TO BILATERAL UPPER EXTREMITIES. SAFETY AND FALL PRECAUTIONS WERE MAINTAINED. NO SEIZURE ACTIVITY NOTED THIS SHIFT WILL ENDORSE CARE TO AM NURSE. CALL LIGHT IN REACH. BED ALARM ON.
[2016-10-09 06:37] LABS: BASOPHILS % (AUTO) 0.5 % (0.0-2.0); EOSINOPHILS % (AUTO) 1.2 % (0.0-4.0); HEMATOCRIT 25.6 % (36-54); LYMPHOCYTES # (AUTO) 0.8 K/uL (1.0-5.5); LYMPHOCYTES % (AUTO) 19.6 % (20.5-51.5); MEAN CORPUSCULAR HEMOGLOBIN 25 pg (27-31); MEAN CORPUSCULAR HGB CONC 31 % (32-36); MEAN CORPUSCULAR VOLUME 79 fL (79.0-98.0); MONOCYTES # (AUTO) 0.5 K/uL (0.0-1.0); MONOCYTES % (AUTO) 12.5 % (1.7-9.3); NEUTROPHILS # (AUTO) 2.7 K/uL (1.8-7.7); NEUTROPHILS % (AUTO) 66.2 % (40.0-70.0); PLATELET COUNT (AUTO) 285 K/uL (130-430); RED BLOOD CELL COUNT(AUTO) 3.23 MIL/uL (4.2-6.2); RED CELL DISTRIBUTION WIDTH 17.8 % (9.0-15.0)
[2016-10-09 06:39] LABS: CALCIUM 8.4 mg/dL (8.4-11.0); CREATININE 1.04 mg/dL (0.55-1.30); POTASSIUM 3.8 mmol/L (3.5-5.1)
[2016-10-09 07:20] VITALS: BP 127/69; PULSE 69
[2016-10-09] MEDS: BUDESONIDE 0.5 MG/2 ML AMPUL.NEB INH SCH ×2 (07:20→19:44)
[2016-10-09] MEDS: SENNOSIDES 8.6 MG TABLET PO SCH ×3 (09:00→22:05)
[2016-10-09] MEDS: TAMSULOSIN HCL 0.4 MG CAP PO SCH ×2 (09:00→09:05)
[2016-10-09] MEDS: HEPARIN SODIUM,PORCINE 5000 UNITS/ML VIAL SUBCUT SCH ×2 (09:00→21:00)
[2016-10-09] MEDS: ALLOPURINOL 100 MG TABLET (ZYLOPRIM) PO SCH ×2 (09:00→09:05)
[2016-10-09 09:06] VITALS: BP 139/82; PULSE 73; RESP 16; TEMP 97.7; O2SAT 100
--- NOTE | 2016-10-09 10:04 | NUR ---
D/c restraint per Doctor Diaz during last rounds as patient not agitated. Notes back pain. Confused per baseline. Needs met at this time. Call from laboratory requesting order clarification for lyme disease test. Noted Doctor Pemberton wrote test blood for lyme disease. Lab will re-enter order. Patient refused am meal per DETASSELER. Too lethargic to take am meds.
[2016-10-09 11:21] VITALS: BP 129/68; PULSE 67; RESP 16; TEMP 98.2; O2SAT 99
[2016-10-09] MEDS: LEVOFLOXACIN 500 MG/D5W 100 ML IV SCH (11:42)
[2016-10-09] MEDS: MORPHINE 2 MG/ML INJ. SYRINGE IVP PRN ×3 (11:45→23:25)
--- NOTE | 2016-10-09 12:23 | NUR ---
Patient told volunteer about back pain. 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 Given morphine. Patient resting at this time. IV antibiotics given.
--- NOTE | 2016-10-09 13:00 | NUR ---
Discussion with patient son at bedside who notes patient is ultimately a person who would not want to prolong his disease process if it was fatal. However, discussion about patient needing more calorie intake and medicine would work more effectively. Aware the patient was normal in late June 2016 until after third knee surgery. Reaction to anesthesia discussion as possible reason patient did not recover from surgery. Son also notes patient suffered from mrsa infected surgery site. The son notes patient did use ETOH with confusion on occasion prior to surgery, however, now more confusion or hallucinating scenarios occur. For example, he will be talking about a two headed dog or the feeling of being late for work with his spouse or his son. The patient did not put any of his wishes in writing. The son says ultimately it will be his mothers decision to decide about the patient's care. They are hopeful he will recover. Discussed dementia as one of the neurologist's assessment components, left side weakness, along with a pending lab set to rule out lyme disease. Son notes patient did enjoy the outdoors before and always had a problem with his left knee prior to the first surgery. Patient woke up long enough for show card writer to attempt to feed. He could not complete the chewing task. Food removed from patient's mouth. The patient was able to recognize son and hug him and tell him he loved him.
[2016-10-09 16:02] VITALS: BP 130/69; PULSE 65; RESP 16; TEMP 98.2; O2SAT 100
--- NOTE | 2016-10-09 16:46 | NUR ---
Rounds to patient. Needs met at this time. Resting quietly. Reposition with feet floating off bed on pillow.
[2016-10-09] MEDS ORDERED: EPOETIN ALFA 3,000 UNITS/ML VIAL SUBCUT SCH (17:00)
--- NOTE | 2016-10-09 17:15 | NUR ---
Assist with SALON CUSTOMER EXPERIENCE SPECIALIST to change patient underpad and gown. Patient given as needed morphine IV for pain because of reposition causing pain in left knee. Patient says he is fine and does not feel down or depressed when asked. SALON CUSTOMER EXPERIENCE SPECIALIST also noted when she tried to feed patient he asked what it was. She told him chicken. He said it was not good.
--- NOTE | 2016-10-09 19:54 | NUR ---
Handoff report to noc nurse. IV infiltrated. Needs assist with reposition. Not yet taking po well this shift. Patient is confused but can communicate clearly at times. New IV fluid bag needed at this time.
[2016-10-09 20:00] VITALS: BP 126/68; PULSE 65; RESP 17; TEMP 97.8; O2SAT 100
[2016-10-09] MEDS: NACL 0.9% 1,000 ML IV SCH (20:10)
[2016-10-09] MEDS: PARoxetine HCL 20 MG TABLET PO SCH (22:05)
--- NOTE | 2016-10-09 22:15 | NUR ---
Medications Due medications given as ordered. Tolerated po medications well. Refused Heparin SQ. Asked if it will kill him. Educated on reason for giving heparin and side effects. Continued to refuse, stating he wants to speak with MD tomorrow.
--- NOTE | 2016-10-09 23:32 | NUR ---
Pain c/o left knee pain rated 6/10, unable to describe pain. Morphine sulfate IV given as ordered.
[2016-10-10 00:05] VITALS: BP 139/77; PULSE 70; RESP 17; TEMP 97.7; O2SAT 99
--- NOTE | 2016-10-10 00:35 | NUR ---
Rounds Resting quietly with eyes closed, easily aroused. No c/o pain or discomfort. No agitation noted. Fall precautions in place. Call light within reach. Bed alarm on.
[2016-10-10 04:06] VITALS: BP 140/77; PULSE 71; RESP 18; TEMP 98.2; O2SAT 100
--- NOTE | 2016-10-10 05:00 | NUR ---
Hygiene Incontinent of urine. Bed bath given with HELP DESK ASSOCIATE. Gown and linen changed. Turned and repositioned with pillow support. Tolerated fairly, cooperative with care.
[2016-10-10] MEDS: CLINDAMYCIN 600 MG in D5W 50 ML IV SCH ×2 (05:25→11:41)
[2016-10-10 06:23] LABS: CALCIUM 8.5 mg/dL (8.4-11.0); CREATININE 0.9 mg/dL (0.55-1.30); POTASSIUM 3.9 mmol/L (3.5-5.1)
[2016-10-10 06:29] LABS: BASOPHILS % (AUTO) 0.7 % (0.0-2.0); EOSINOPHILS # (AUTO) 0.1 K/uL (0.0-0.4); EOSINOPHILS % (AUTO) 2.4 % (0.0-4.0); HEMATOCRIT 25.4 % (36-54); HEMOGLOBIN 8.1 g/dL (14.0-18.0); MEAN CORPUSCULAR HEMOGLOBIN 25 pg (27-31); MEAN CORPUSCULAR HGB CONC 32 % (32-36); MEAN CORPUSCULAR VOLUME 79 fL (79.0-98.0); MONOCYTES # (AUTO) 0.4 K/uL (0.0-1.0); MONOCYTES % (AUTO) 10.1 % (1.7-9.3); NEUTROPHILS # (AUTO) 2.1 K/uL (1.8-7.7); NEUTROPHILS % (AUTO) 58.8 % (40.0-70.0); PLATELET COUNT (AUTO) 293 K/uL (130-430); RED BLOOD CELL COUNT(AUTO) 3.22 MIL/uL (4.2-6.2); RED CELL DISTRIBUTION WIDTH 18.5 % (9.0-15.0); WHITE BLOOD COUNT (AUTO) 3.6 K/uL (4.8-10.8)
[2016-10-10] MEDS: D5W IV SCH ×2 (06:51→14:27)
[2016-10-10] MEDS: VALPROATE SODIUM IV SCH ×2 (06:51→14:27)
[2016-10-10 08:00] VITALS: BP 109/65; PULSE 71; RESP 18; TEMP 98.4; O2SAT 97
--- NOTE | 2016-10-10 08:00 | NUR ---
RN OPENING NOTE PATIENT LYING ON BED, OPEN EYES ALERT TO NAME, PATIENT WAS ASSESSED WILL FOLLOW UP WITH MEDICATION ADMINISTRATION AT 900- VITAL SIGNS ARE STABLE
[2016-10-10] MEDS: TAMSULOSIN HCL 0.4 MG CAP PO SCH (09:36)
[2016-10-10] MEDS: SENNOSIDES 8.6 MG TABLET PO SCH (09:36)
[2016-10-10] MEDS: ALLOPURINOL 100 MG TABLET (ZYLOPRIM) PO SCH (09:36)
[2016-10-10] MEDS: NACL 0.9% 1,000 ML IV SCH (09:37)
[2016-10-10] MEDS: HEPARIN SODIUM,PORCINE 5000 UNITS/ML VIAL SUBCUT SCH (09:41)
--- NOTE | 2016-10-10 09:55 | NUR ---
DISCHARGE PLANNING DC order back to [facility]. Faxed SNF referral to [facility] [phone]. Will follow up. Addendum: 10/10/16 at 1102 by Zina MITTAL spoke with Libby in admitting at [facility] who was made aware no ISO at this time. Libby will return call with bed assignment. Addendum: 10/10/16 at 1107 by Zina MITTAL spoke with Libby at [facility] bed assignment will be given upon insurance auth. YANELY Trujillo made aware contracted ambulance with insurance auth needed. Addendum: 10/10/16 at 1153 by Zina MITTAL Per Libby at [facility] YANELY Glez at [facility] [phone] requested updated clinical review to be faxed to [phone]. YANELY Trujillo was made aware. Addendum: 10/10/16 at 1556 by Zina Tapia DP Spoke with patient Marni Bonilla ph [phone] who is agreeable with patient discharge and transfer to [facility]. Called contracted ambulance [facility] [phone] arranged BLS transport machine operator hop picker between 4-4:30pm. RN made aware. Placed transportation packet in nurses station. Addendum: 10/10/16 at 1559 by Zina MITTAL patient assigned to room 122B RN to report [phone]. [facility] transport auth#[id number]
--- NOTE | 2016-10-10 11:00 | NUR ---
RN ROUNDS Patient lying on bed repositioned. denies pain or discomfort, patient was given his IVPB of Levaquin, will follow up, patient will go back to his SNF
[2016-10-10] MEDS: LEVOFLOXACIN 500 MG/D5W 100 ML IV SCH (11:36)
[2016-10-10 12:00] VITALS: BP 131/79; PULSE 68; RESP 18; TEMP 97.9; O2SAT 100
--- NOTE | 2016-10-10 12:20 | NUR ---
DC PLANNING Faxed pt info to [facility] @ [facility] requesting auth for SNF & ambulance. fax [phone], ph [phone].
--- NOTE | 2016-10-10 12:39 | NUR ---
DC PLANNING Order to dc back to [facility]. Called & spoke w , Marni Bonilla ph [phone], & informed of order. 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 She cannot take care of in his current condition. States agreeable w transfer back to [facility] SNF but would first like to speak w Dr Diaz regarding pt's status. Informed pt's nurse Mohamed to page Dr Diaz to speak w .
--- NOTE | 2016-10-10 14:00 | NUR ---
RN Rounds case assistant Cassandra called regarding the patient D/C orders back to [facility]. she said will talk with the and I contacted Dr. Diaz and left a message with Ximena at the answering service for Dr. diaz to call the for her permission to transfer the back
--- NOTE | 2016-10-10 16:00 | NUR ---
RN Rounds patient lying on bed, patient will be transferred back to his SNF by ambulance, Cassandra the CM was contacted and she is arranging for the transfer
[2016-10-10 16:43] VITALS: BP 131/79; PULSE 71; RESP 18; TEMP 97.5; O2SAT 99
[2016-10-10 16:53] VITALS: BP 130/69; PULSE 70; RESP 16; TEMP 98.6; O2SAT 100
--- NOTE | 2016-10-10 17:06 | NUR ---
RN closing note patient lying on bed denies pain or discomfort, his discharge papers were made and the ambulance arrived a report was given to the Ambulance ricky as well as the the SNF ( [facility]) patient left with the ambulance.
[2016-10-12 07:14] LABS: ANTI NUCLEAR AB WITH REFLEX Negative (Negative)
== END 2016-10-10 17:13 | DRG 48 ==
LOC: SED 00:22 → STU 02:26
PROVIDERS: ADMIT General Practice; ATTEND General Practice
DX: G90.9 Disorder of the autonomic nervous system, unspecified (principal); G30.9 Alzheimer's disease, unspecified; L03.116 Cellulitis of left lower limb; F02.80 Dementia in other diseases classified elsewhere, unspecified severity, without behavioral disturbance, psychotic disturbance, mood disturbance, and anxiety; G40.909 Epilepsy, unspecified, not intractable, without status epilepticus; W19.XXXA Unspecified fall, initial encounter; D63.8 Anemia in other chronic diseases classified elsewhere; M17.0 Bilateral primary osteoarthritis of knee; F31.9 Bipolar disorder, unspecified; M10.9 Gout, unspecified; F29 Unspecified psychosis not due to a substance or known physiological condition; Z96.652 Presence of left artificial knee joint; R25.1 Tremor, unspecified; W18.39XA Other fall on same level, initial encounter; Y93.89 Activity, other specified; Z86.14 Personal history of Methicillin resistant Staphylococcus aureus infection; Y92.89 Other specified places as the place of occurrence of the external cause; Y99.8 Other external cause status; Z88.1 Allergy status to other antibiotic agents; Z88.8 Allergy status to other drugs, medicaments and biological substances
CPT/HCPCS: 36415; 70450-TC; 71010; 73560-TC; 80048; 80053; 80164-TC; 80307; 81003; 82272; 82607; 82962; 83605; 83735-TC; 83921; 84100-TC; 84443-TC; 84484; 85025; 85651-TC; 86038; 86140; 86376; 86592; 86617; 86618; 87040-TC; 87081; 93005; 93880; 94640; 95816; 99285; J0885; J1644; J1956; J2060; J2270; J3490; J7030; J7060